=== PATIENT | female | born 1940 | race Caucasian/White ===

== ENCOUNTER 2017-02-13 09:08 | Day surgery (SDC) | payer MEDICARE, OTHER ==
[~2017-02-13] VITALS: Ht 154.9 cm; Wt 102.2 kg
[2017-02-13] MEDS ORDERED: LISINOPRIL (10:31)
[2017-02-13] MEDS ORDERED: TRAMADOL (10:31)
[2017-02-13] MEDS ORDERED: MELOXICAM (10:31)
[2017-02-13] MEDS ORDERED: SERTRALINE (10:31)
[2017-02-13] MEDS ORDERED: CRANBERRY (10:31)
[2017-02-13] MEDS ORDERED: SIMVASTATIN (10:31)
[2017-02-13] MEDS ORDERED: B COMPLEX (10:31)
[2017-02-13] MEDS ORDERED: BRIMONIDINE (10:31)
[2017-02-13] MEDS ORDERED: [UNRECOGNIZED DRUG - CODE] (10:31)
[2017-02-13] MEDS ORDERED: ASPIRIN (10:31)
[2017-02-13] MEDS ORDERED: CALTRATE (10:31)
[2017-02-13] MEDS ORDERED: PROPOFOL 40 ML ONE (10:32)
[2017-02-13 10:33] VITALS: Ht 154.9 cm; Wt 102.2 kg
[2017-02-13 10:53] VITALS: BP 136/87; PULSE 83; RESP 22
--- NOTE | 2017-02-13 11:16 | OPPN ---
Date/Time of Note Date/Time of Note DATE: 02/13/17 TIME: 11:15 Operative Report Preoperative Diagnosis Rectal bleeding Postoperative Diagnosis Diverticulosis of the colon Flat sigmoid polyp Internal hemorrhoids Operation/Procedure Performed Colonoscopy and biopsy Anesthesia Type: MAC Estimated blood loss: none Transfusion Required: no Specimens Sigmoid colon biopsy Grafts/Implants: none Complications: no TAHIR CABRERA MD Feb 13, 2017 11:16
[2017-02-13 11:43] VITALS: BP 122/55; PULSE 66; RESP 14
--- NOTE | 2017-02-13 11:43 | GILP ---
DATE OF PROCEDURE: 02/13/2017 PROCEDURE PERFORMED: Colonoscopy and biopsy. SURGEON: Dr. Sheridan. PREOPERATIVE DIAGNOSIS: Rectal bleeding. POSTOPERATIVE DIAGNOSES: 1. Flat polyp in the sigmoid colon was biopsied. 2. Diverticulosis of the colon. 3. Internal hemorrhoids. INDICATION: Ms. Lia Bardales is a 76-year-old female patient who has rectal bleeding. The patient was scheduled for colonoscopy for further evaluation. The procedure and possible complications were well explained to the patient. She understood and consented to the procedure. DESCRIPTION OF PROCEDURE: Under influence of anesthesia, the colonoscope was carefully introduced in the rectum, and under direct vision, it was advanced all the way to the cecum. FINDINGS: The patient had a flat polyp in the sigmoid colon. Biopsies were taken for histopathology. She was noted to have diverticulosis of the colon and internal hemorrhoids. She tolerated the procedure very well. There is no complication from the procedure. At the end of procedure, she was awake with stable vital signs and she was discharged home in care of her family. IMPRESSION: Please see postop diagnoses. PLAN: 1. High-fiber diet. 2. Anusol HC suppository at bedtime. 3. Because of the patient's age, she will not need another screening colonoscopy. Dictated By: MD JOHN Rivas/mj/jonathan /Document#: [id number] CC: Christian Sheridan MD;*[facility]*
== END 2017-02-13 18:14 | disposition home or self-care (01) ==
LOC: GIL 09:08
PROVIDERS: ATTEND Internal Medicine Gastroenterology
DX: D12.5 Benign neoplasm of sigmoid colon (principal); K57.90 Diverticulosis of intestine, part unspecified, without perforation or abscess without bleeding; K64.8 Other hemorrhoids; E78.5 Hyperlipidemia, unspecified
CPT/HCPCS: 88305